=== PATIENT | male | born 1985 | race Caucasian/White ===

== ENCOUNTER → 2021-11-02 17:50 | Outpatient (CLI) | payer OTHER, SELFPAY ==
--- NOTE | 2021-11-02 | DI.MRI.S_ITS ---
PROCEDURE: MR LUMBAR SPINE WO CON INDICATIONS: INTERVERTEBRAL DISC DISORDERS LUMBAR REGION TECHNIQUE: Noncontrast sagittal T1 spin echo and T2 fast echo, sagittal STIR, and T2 fast spin echo through the lumbar spine. In cases with scoliosis, additional coronal T2 fast spin echo may be performed. COMPARISON: None. FINDINGS: Image quality: Excellent. Alignment and Curvature: There is normal bony alignment. Bone Marrow: Marrow is of normal overall signal. No acute vertebral body compression fractures. Spinal Cord: Conus medullaris terminates at the L1 level. Visualized cord demonstrates normal signal and size. Paraspinous Soft Tissues: No paravertebral masses. T12-L1: Normal appearance. L1-L2: Normal appearance. Minimal disc space loss. Minimal loss of disc signal intensity. Minimal symmetric disc bulge. Minimal bilateral facet arthropathy. There is minimal-mild bilateral neuroforaminal stenosis. No significant spinal canal stenosis. L2-L3: Mild bilateral facet arthropathy. No significant neuroforaminal or spinal canal stenosis. L3-L4: Mild bilateral facet arthropathy. No significant neuroforaminal or spinal canal stenosis. L4-L5: Mild symmetric disc bulge. Mild bilateral facet arthropathy. No significant neuroforaminal or spinal canal stenosis. L5-S1: Normal appearance. IMPRESSION: Multilevel, multifactorial lumbar spondylosis as detailed above by vertebral body level. Findings are most pronounced at L1-2 where combination of disc space loss, symmetric disc bulge, and bilateral facet arthropathy results in minimal-mild bilateral neuroforaminal stenosis without significant spinal canal stenosis. Dictated by: Nadir Bowman M.D. on 11/03/2021 at 10:02 Approved by: Nadir Bowman M.D. on 11/03/2021 at 10:13
--- NOTE | 2021-11-02 | DI.MRI.S_ITS ---
PROCEDURE: MR CERVICAL SPINE WO CON INDICATIONS: INTERVERTEBRAL DISC DISORDERS LUMBAR REGION TECHNIQUE: Noncontrast sagittal T1 spin echo and T2 fast spin echo, sagittal STIR, foraminal oblique sagittal T2 fast spin echo, and axial gradient echo or T2 fast spin echo through the cervical spine. COMPARISON: None. FINDINGS: Image quality: Excellent. Alignment and Curvature: There is straightening of normal cervical lordosis. Bone Marrow: Marrow demonstrates normal overall signal. Spinal Cord: Visualized spinal cord has normal size and signal. No cerebellar tonsillar herniation. Paraspinous Soft Tissues: No paravertebral masses. Prevertebral soft tissues are normal in thickness. Suspected left maxillary sinus mucosal thickening. C2-C3: Normal appearance. C3-C4: Normal appearance. C4-C5: Normal appearance. C5-C6: Minimal degenerative endplate changes. Mild bilateral uncovertebral osteoarthrosis. Broad-based posterior disc osteophyte complex which appears slightly eccentric to the left. There is associated moderate spinal canal stenosis at this level without associated cord signal abnormalities. There is moderate left and minimal right bilateral neural foraminal stenosis. C6-C7: Small broad-based posterior disc osteophyte complex with mild bilateral uncovertebral osteoarthrosis. There is minimal left neural foraminal stenosis. No significant spinal canal stenosis. C7-T1: Normal appearance. IMPRESSION: Cervical spine without acute abnormalities. Eccentric to the left, broad-based posterior disc osteophyte complex of the C5-6 disc and C5-6 spondylitic changes resulting in moderate spinal canal stenosis, moderate left neural foraminal stenosis, and minimal right neural foraminal stenosis at this level. No associated cord signal abnormalities. Small broad-based posterior disc osteophyte complex at C6-7 with minimal left neural foraminal stenosis. Dictated by: Nadir Bowman M.D. on 11/03/2021 at 9:22 Approved by: Nadir Bowman M.D. on 11/03/2021 at 9:55
== END ==
PROVIDERS: Referring Provider Internal Medicine; Visit Provider Internal Medicine
DX: M51.86 Other intervertebral disc disorders, lumbar region (principal); M47.816 Spondylosis without myelopathy or radiculopathy, lumbar region; M48.02 Spinal stenosis, cervical region
CPT/HCPCS: 72141; 72148